=== PATIENT | male | born 1990 | race Asian ===

== ENCOUNTER 2018-06-08 17:37 | Emergency (ER) | payer SELFPAY ==
[2018-06-08 18:33] LABS: #Basophils 0.1 thou/uL (0.0-0.2); #Eosinphils 0.4 thou/uL (0.0-0.7); #Lymphocytes 3.9 thou/uL (1.20-3.40); #Monocytes 0.7 thou/uL (0.11-0.59); #Neutrophils 3.3 thou/uL (1.40-6.50); %Basophils 1.5 % (0.0-1.0); %Eosinophils 4.5 % (0.0-10.0); %Lymphocytes 46.5 % (21.0-51.0); %Monocytes 8.6 % (0.0-10.0); %Neutrophils 38.9 % (42.0-75.0); Hemoglobin 14.8 g/dL (14.0-18.0); Mean Corpuscular HGB CONC 33.3 g/dL (32.0-36.0); Mean Corpuscular Volume 90.3 fL (78.0-98.0); Mean Platelet Volume 7.3 fL (7.4-10.4); Platelet Count 221 thou/uL (130-400); RBC Distribution Width 11.5 % (11.5-14.5); Red Blood Cell (RBC) Count 4.94 mill/uL (4.70-6.10); White Blood Cell (WBC) Count 8.5 thou/uL (4.8-10.8)
[2018-06-08 18:47] LABS: ALT (SGPT) 21 U/L (8-55); AST (SGOT) 12 U/L (5-34); Albumin 4.3 g/dL (3.5-5.0); Alkaline Phosphatase 48 U/L (40-150); Anion Gap 13 mmol/L (10-20); BUN (Urea Nitrogen) 16 mg/dL (8.9-20.6); Bilirubin, Total 0.3 mg/dL (0.2-1.2); Calc. Creatinine Clearance 0 mL/min (70-130); Calcium 9.5 mg/dL (7.8-10.44); Carbon Dioxide 24 mmol/L (22-29); Chloride 106 mmol/L (98-107); Estimated GFR-MDRD Greater than 90; Globulin 2.5 g/dL (2.4-3.5); Glucose 89 mg/dL (70-105); Potassium 3.9 mmol/L (3.5-5.1); Protein, Total 6.8 g/dL (6.0-8.3); Sodium 139 mmol/L (136-145)
--- NOTE | 2018-06-08 19:29 | RAD ---
PORTABLE CHEST 06/08/18 PROVIDED CLINICAL HISTORY: Chest pain. FINDINGS: The cardiac and mediastinal silhouette is within normal limits. Lungs appear clear. No pleural fluid or pneumothorax apparent. IMPRESSION: No evidence for an acute cardiopulmonary process. POS: [id number]
== END 2018-06-08 20:12 | disposition home or self-care (01) ==
LOC: NAV ERS 17:37
DX: R07.9 Chest pain, unspecified (principal); F17.210 Nicotine dependence, cigarettes, uncomplicated
CPT/HCPCS: 71045; 80053; 83880; 84484; 85025; 85379; 93005; 94760

== ENCOUNTER 2018-08-08 17:15 | Emergency (ER) | payer OTHER, SELFPAY ==
--- NOTE | 2018-08-08 18:52 | RAD ---
TWO VIEWS CHEST: 08/08/18 HISTORY: 28-year-old male with history of cough for two weeks. PA and lateral views of the chest is obtained on 08/08/18. Two views chest demonstrate the lungs to be well aerated. No evidence of active intrathoracic diseas e seen. No evidence of effusions, pneumonia or pneumothorax seen. IMPRESSION: Unremarkable two views chest. POS: [facility]
== END 2018-08-08 19:01 | disposition home or self-care (01) ==
LOC: NAV ERS 17:15
DX: R05 Cough (principal); R21 Rash and other nonspecific skin eruption; Z71.6 Tobacco abuse counseling; F17.210 Nicotine dependence, cigarettes, uncomplicated
CPT/HCPCS: 71046; 99406